=== PATIENT | female | born 1960 | race Caucasian/White ===

== ENCOUNTER 2018-10-13 11:52 | Emergency (ER) | payer OTHER ==
[2018-10-13 11:59] VITALS: BP 171/85; PULSE 108; RESP 18; TEMP 98.2
--- NOTE | 2018-10-13 12:15 | ED ---
General Adult HPI - General Chief complaint: Eye Problems Stated complaint: eye problems Time Seen by Provider: 10/13/18 12:05 Source: patient, RN notes reviewed Mode of arrival: ambulatory Limitations: no limitations - History of Present Illness Initial comments: 58-year-old female presents to the emergency department for a chief complaint of left eye pain 3 days. She states she woke up with this pain and irritation. Patient denies any injuries to the eye. Patient states the pain is sharp around her eye in general. Patient states the vision in her left eyes seems blurry and she cannot see as well out of this eye. Patient denies pain with extraocular movements. Patient denies any drainage from the eye. Patient denies any history of glaucoma, cataracts, or other ophthalmology history. Patient does not wear glasses or contacts. Denies any medication use. Patient denies any weakness in the upper or lower extremities. Patient has no other complaints at this time including shortness of breath, chest pain, abdominal pain, nausea or vomiting, or visual changes. - Related Data Home Medications Medication Instructions Recorded Confirmed Multivitamins, Thera [Multivitamin 1 tab PO DAILY 10/13/18 10/13/18 (formulary)] Allergies Allergy/AdvReac Type Severity Reaction Status Date / Time No Known Allergies Allergy Verified 10/13/18 12:41 Review of Systems ROS Statement: Those systems with pertinent positive or pertinent negative responses have been documented in the HPI. ROS Other: All systems not noted in ROS Statement are negative. Past Medical History Past Medical History: No Reported History History of Any Multi-Drug Resistant Organisms: None Reported Past Surgical History: No Surgical Hx Reported Past Psychological History: No Psychological Hx Reported Smoking Status: Former smoker Past Alcohol Use History: None Reported Past Drug Use History: None Reported General Exam Limitations: no limitations General appearance: alert, in no apparent distress Head exam: Present: atraumatic, normocephalic, normal inspection Eye exam: Present: normal appearance, EOMI, conjunctival injection (erythema noted of left eye, limbus involved). Absent: PERRL (non-reactive left pupil), scleral icterus, periorbital swelling, other Expanded Eyelids: Erythema: Left Pupils: Regular, Round: Right, Reactive: Right Sclera/Conjunctival: Injection: Left Visual acuity (R) = 20/: 40 Visual acuity (L) = 20/: 200 With correction: No (none) IOP (R) in mmH IOP (L) in mmH IOP measured with: [place]open ENT exam: Present: normal exam, normal oropharynx, mucous membranes moist, TM's normal bilaterally, normal external ear exam Neck exam: Present: normal inspection, full ROM. Absent: tenderness, meningismus, lymphadenopathy Respiratory exam: Present: normal lung sounds bilaterally. Absent: respiratory distress, wheezes, rales, rhonchi, stridor Cardiovascular Exam: Present: regular rate, normal rhythm, normal heart sounds. Absent: systolic murmur, diastolic murmur, rubs, gallop, clicks Neurological exam: Present: alert, oriented X3, CN II-XII intact, normal gait Expanded Patient oriented to: Present: person, place, time Speech: Present: fluid speech Cranial nerves: EOM's Intact: Normal, Nystagmus: Normal, Facial Sensation: Normal Cerebellar function: Finger to Nose: Normal, Heel to Elizabeth: Normal, Romberg: Normal Upper motor neuron: Pronator Drift: Normal Sensory exam: Upper Extremity Light Touch: Normal, Upper Extremity Pin Prick: Normal, Lower Extremity Light Touch: Normal, Lower Extremity Pin Prick: Normal Motor strength exam: RUE: 5, LUE: 5, RLE: 5, LLE: 5 Eye Response: (4) open spontaneously Motor Response: (6) obeys commands Verbal Response: (5) oriented [place] Total: 15 Psychiatric exam: Present: normal affect, normal mood Course Vital Signs 10/13/18 11:56 Temperature 98.2 F Pulse Rate 108 H Respiratory 18 Rate Blood Pressure 171/85 O2 Sat by Pulse 98 Oximetry - Reevaluation(s) Reevaluation #1: 10/13/18 12:55 Pharmacy called, will verify and send med as soon as possible. Medical Decision Making - Medical Decision Making 58-year-old female presents to the emergency department for right eye pain and blurry vision 3 days. On exam patient has erythema noted of the conjunctiva, not sparing the limbus. Pupil is nonreactive. No hyphema noted. Visual acuity in the left eye 20/200, right eye 20/40. No history of ophthalmology problems. IOP's are within normal limits, repeated several times to ensure this. At this time I am concerned for uveitis, Dr. Rubi consulted. He did come to the emergency department and evaluate patient with slit lamp. He also agrees patient is uveitis. Patient started on steroid drop as well as dilating drop here. Given strict return parameters. Patient will follow-up with Dr. Rubi on Tuesday and was told she can call his number if she has any problems over the weekend. Patient aware she can also return to the emergency Department if she has any problems. Discussed administering drops in depth and directed patient with handwritten and typed instructions. Disposition Clinical Impression: Uveitis Disposition: HOME SELF-CARE Condition: Good Instructions (If sedation given, give patient instructions): Iritis (ED) Additional Instructions: Please apply prednisone acetate drops every 2 hours for the first 24 hours and every 6 hours thereafter. Please apply tropicamide drops 3 times a day. Please follow-up with Dr. Rubi on Tuesday. Make sure to call the office in the morning. If you're having any worsening symptoms over the weekend, call Dr. Rubi's number or return here to the emergency department. Is patient prescribed a controlled substance at d/c from ED?: No Referrals: Jaime Rubi MD [STAFF PHYSICIAN] - 1-2 days Time of Disposition: 14:06
[2018-10-13] MEDS ORDERED: PROPARACAINE 0.5% OPHTH DROPS 15 ML BTL BOTH EYES STA (12:21)
[2018-10-13] MEDS ORDERED: TROPICAMIDE 1% OPHTH DROPS 2 ML BTL LEFT EYE SCH (13:00)
[2018-10-13] MEDS ORDERED: prednisoLONE ACETATE 1% OPHTH DROPS 5 ML BTL LEFT EYE STA (14:07)
--- NOTE | 2018-10-13 14:27 | P.CON ---
Consult Note - . Consult date: 10/13/18 Assessment/Plan:: 58 y/o female without previous eye exam claims to be experiencing problem with vision in the left eye for the last 3 days. Today on admission vision is 20/40 in the right, and 20/200. She is suspected to have iritis. There is a mild he adache and redness. She denies previous surgeries or recent infection or discharge. Px: Va 20/40 OD, 20/200 OS w/o correction IOP 11 OD, 13 OS @ 1300 ext: normal conj OD white & quiet, OS mild ciliary flush. cornea: clear OD, mild edema and increased thickness AC: D&Q OD, 2+ flare and 1+ cell Lens: slightly foggy. posterior: dilated tropicamide 1% optic nerve: SFP, OU, 0.10 OU, macula quiet OU P: begin aggressive steroid application every 2 hours while awake and add tropicamide 3 times daily in left eye. 3) follow up in office on Tuesday and to call if any increasing problems prior to appointment,.
== END 2018-10-13 14:41 | disposition home or self-care (01) ==
LOC: EC 11:52
DX: H20.9 Unspecified iridocyclitis (principal); Z87.891 Personal history of nicotine dependence
CPT/HCPCS: 99283